=== PATIENT | male | born 1955 | race Two or more races ===

== ENCOUNTER 2025-07-17 18:34 | Inpatient (IN) | payer MEDICARE ==
[~2025-07-17] VITALS: Ht 177.8 cm; Wt 51.3 kg
[2025-07-17 19:05] LABS: PLATELET COUNT (AUTO) 400 K/uL (150-450); RED BLOOD CELL COUNT(AUTO) 3.02 MIL/uL (4.5-6.0); RED CELL DISTRIBUTION WIDTH 14.7 % (11.5-15.0); WHITE BLOOD COUNT (AUTO) 12.7 K/uL (4.3-11.0)
[2025-07-17] MEDS: IPRATROPIUM NEB FS 0.5 MG/2.5 ML AMPUL.NEB NEB ONE (19:24)
[2025-07-17] MEDS: ALBUTEROL FS 2.5 MG/3 ML VIAL.NEB CONTNEB ONE (19:24)
[2025-07-17 19:26] LABS: ABG BASE EXCESS 4.7 mmol/L (-2.0-3.0); ABG OXYGEN SATURATION 75.5 % (94.0-98.0); ABG PCO2 42.1 mmHg (35.0-48.0); ABG PH 7.456 (7.350-7.450); ABG PO2 42.1 mmHg (83.0-108.0); ABG TOTAL HEMOGLOBIN 10.2 G/dL (13.5-17.5); SET RATE, BG 20.0; SITE, ABG RIGHT RADIAL
[2025-07-17] MEDS ORDERED: ALBUTEROL FS 2.5 MG/3 ML VIAL.NEB ONE (19:26)
[2025-07-17] MEDS ORDERED: IPRATROPIUM NEB FS 0.5 MG/2.5 ML AMPUL.NEB ONE (19:26)
[2025-07-17 19:27] LABS: LACTIC ACID 2.9 mmol/L (0.4-2.0)
[2025-07-17] MEDS: IV NS 0.9% 1,000 ML BAG IV ONE (19:30)
[2025-07-17 19:34] LABS: CREATINE KINASE, TOTAL 31 U/L (39-308)
[2025-07-17 19:38] LABS: ASPARTATE AMINOTRANSFERASE 18 U/L (15-37); CALCIUM, SERUM 12.0 mg/dL (8.5-10.1); CREATININE 1.6 mg/dL (0.6-1.3); SODIUM SERUM 138 mmol/L (136-145); TOTAL PROTEIN, SERUM 5.9 g/dL (6.4-8.2); UREA NITROGEN, BLOOD 43 mg/dL (7-18)
[2025-07-17 19:40] LABS: FIBRINOGEN ACTIVITY 463.0 Mg/dL (213-485); INR 1.19 (0.91-1.10)
[2025-07-17] MEDS: LEVOFLOXACIN 750 MG /D5W 150ML PIGGYBACK IV ONE (19:47)
[2025-07-17] MEDS ORDERED: IOHEXOL-350 100 ML VIAL IV ONE (20:08)
[2025-07-17] MEDS ORDERED: IV NS 0.9% 250 ML IV ONE (20:08)
[2025-07-17] MEDS ORDERED: ENOXAPARIN SODIUM 60 MG/0.6 ML DISP.SYRIN SQ ONE (20:13)
[2025-07-17] MEDS: ENOXAPARIN SODIUM 40 MG/0.4 ML DISP.SYRIN SQ ONE (20:30)
[2025-07-17] MEDS ORDERED: AMIN30LI66 PO (20:49)
[2025-07-17] MEDS ORDERED: AMLO-213 PO (20:50)
[2025-07-17] MEDS ORDERED: ZINC10LO5 PO (20:50)
[2025-07-17] MEDS ORDERED: ASCO500C18 PO (20:50)
[2025-07-17] MEDS ORDERED: NICO1PAT44 TP (20:50)
[2025-07-17] MEDS ORDERED: MULT-594 PO (20:50)
[2025-07-17] MEDS ORDERED: DOCU100C36 PO (20:50)
[2025-07-17] MEDS ORDERED: OXYC10SY PO (20:50)
[2025-07-17 21:12] LABS: ABG BASE EXCESS 1.0 mmol/L (-2.0-3.0); ABG OXYGEN SATURATION 99.3 % (94.0-98.0); ABG PCO2 31.0 mmHg (35.0-48.0); ABG PH 7.498 (7.350-7.450); ABG PO2 252.2 mmHg (83.0-108.0); ABG TOTAL HEMOGLOBIN 12.2 G/dL (13.5-17.5); SET RATE, BG 20.0; SITE, ABG RIGHT BRACHIAL
[2025-07-17] MEDS ORDERED: PHENYLEPHRINE 50 MG in IV NS 0.9% 250 ML IV PRN (21:30)
[2025-07-17] MEDS ORDERED: BISACODYL SUPP (10 MG) 10 MG/SUPP.RECT SUPP.RECT RC PRN (21:30)
[2025-07-17] MEDS ORDERED: DOSING PER PHARMACY-VANCOMYCIN IV XX PRN (21:30)
[2025-07-17] MEDS ORDERED: ONDANSETRON HCL/PF 4 MG/2 ML VIAL IVP PRN (21:30)
[2025-07-17] MEDS ORDERED: ACETAMINOPHEN 650 MG/SUPP.RECT RC ONE (21:59)
[2025-07-17] MEDS: ACETAMINOPHEN 650 MG/SUPP.RECT RC PRN (22:04)
[2025-07-17] MEDS: IV D5/ 0.9% NACL 1,000 ML IV SCH (22:39)
[2025-07-17] MEDS: VANCOMYCIN 1 GM /D5W 250 ML PB IV ONE (22:48)
[2025-07-17] MEDS: VANCOMYCIN 1 GM in IV NS 0.9% 250 ML IV ONE (22:48)
[2025-07-17 23:00] VITALS: BP 93/68; O2SAT 100
[2025-07-17] MEDS: IV NS 0.9% 250 ML IV PRN (23:09)
[2025-07-17 23:53] LABS: ABG BASE EXCESS -0.3 mmol/L (-2.0-3.0); ABG OXYGEN SATURATION 99.4 % (94.0-98.0); ABG PCO2 29.8 mmHg (35.0-48.0); ABG PH 7.495 (7.350-7.450); ABG PO2 311.1 mmHg (83.0-108.0); ABG TOTAL HEMOGLOBIN 9.3 G/dL (13.5-17.5); SITE, ABG LEFT BRACHIAL
[2025-07-18] VITALS (26 sets, daily range): BP systolic 84–138; BP diastolic 59–76; TEMP 98–98.6; O2SAT 89–100
[2025-07-18] MEDS ORDERED: PHENYLEPHRINE 50 MG in IV NS 0.9% 250 ML IV PRN
[2025-07-18] MEDS: MORPHINE SULFATE INJ 2 MG/ML DISP.SYRIN IV PRN (01:28)
[2025-07-18] MEDS ORDERED: FUROSEMIDE 40 MG/4 ML VIAL IV ONE (02:00)
[2025-07-18] MEDS: IV NS 0.9% 1,000 ML IV SCH (02:33)
[2025-07-18 04:57] LABS: ASPARTATE AMINOTRANSFERASE 24.0 U/L (15-37); CALCIUM, SERUM 11.2 mg/dL (8.5-10.1); CREATININE 2.2 mg/dL (0.6-1.3); SODIUM SERUM 141.0 mmol/L (136-145); TOTAL PROTEIN, SERUM 5.5 g/dL (6.4-8.2); UREA NITROGEN, BLOOD 46.0 mg/dL (7-18)
[2025-07-18] MEDS: NICOTINE PATCH (14MG) 14 MG PATCH.TD24 TD SCH (08:20)
[2025-07-18] MEDS: PANTOPRAZOLE 40 MG VIAL IV SCH (08:20)
[2025-07-18] MEDS: THERAHONEY GEL 1.5 OZ TUBE TP SCH (08:21)
[2025-07-18] MEDS: IV NS 0.9% 1,000 ML IV PRN (08:59)
[2025-07-18] MEDS ORDERED: NICOTINE PATCH (14MG) 14 MG PATCH.TD24 TD SCH (09:00)
[2025-07-18 09:35] LABS: PLATELET COUNT (AUTO) 305 K/uL (150-450); RED BLOOD CELL COUNT(AUTO) 2.57 MIL/uL (4.5-6.0); RED CELL DISTRIBUTION WIDTH 14.9 % (11.5-15.0); WHITE BLOOD COUNT (AUTO) 10.9 K/uL (4.3-11.0)
[2025-07-18 19:03] LABS: ASPARTATE AMINOTRANSFERASE 25.0 U/L (15-37); CALCIUM, SERUM 11.0 mg/dL (8.5-10.1); CREATININE 2.4 mg/dL (0.6-1.3); SODIUM SERUM 143.0 mmol/L (136-145); TOTAL PROTEIN, SERUM 5.2 g/dL (6.4-8.2); UREA NITROGEN, BLOOD 52.0 mg/dL (7-18)
[2025-07-18] MEDS ORDERED: ENOXAPARIN SODIUM 60 MG/0.6 ML DISP.SYRIN SQ SCH (20:00)
[2025-07-18] MEDS: ENOXAPARIN SODIUM 60 MG/0.6 ML DISP.SYRIN SQ SCH (22:00)
[2025-07-18] MEDS: VANCOMYCIN 750 MG in IV D5W 250 ML IV SCH (23:05)
[2025-07-19] VITALS (23 sets, daily range): BP systolic 110–148; BP diastolic 50–83; TEMP 98–98.8; O2SAT 88–98
[2025-07-19 04:36] LABS: PLATELET COUNT (AUTO) 333 K/uL (150-450); RED BLOOD CELL COUNT(AUTO) 2.43 MIL/uL (4.5-6.0); RED CELL DISTRIBUTION WIDTH 15.0 % (11.5-15.0); WHITE BLOOD COUNT (AUTO) 12.2 K/uL (4.3-11.0)
[2025-07-19 04:53] LABS: CREATINE KINASE, TOTAL 59.0 U/L (39-308)
[2025-07-19 04:56] LABS: CALCIUM, SERUM 11.3 mg/dL (8.5-10.1); CREATININE 1.9 mg/dL (0.6-1.3); PHOSPHORUS 3.7 mg/dL (2.5-4.9); SODIUM SERUM 145.0 mmol/L (136-145); UREA NITROGEN, BLOOD 56.0 mg/dL (7-18)
[2025-07-19] MEDS: AMLODIPINE BESYLATE 10 MG TABLET PO SCH (08:22)
[2025-07-19] MEDS: POTASSIUM CL. PREMIX PERIPHER. 50 ML IV SCH (09:50)
[2025-07-19] MEDS: ENOXAPARIN SODIUM 30 MG/0.3 ML DISP.SYRIN SQ SCH (11:11)
[2025-07-19 11:17] LABS: IRON, SERUM 36 ug/dl (50-175)
[2025-07-19] MEDS: PANTOPRAZOLE 40 MG VIAL IV SCH (16:25)
[2025-07-19 19:33] LABS: CREATININE, URINE 101.5 MG/DL (30.0-125.0); URINE SODIUM, RANDOM 43.0 mmol/l (40-220); URINE TOTAL PROTEIN 158.4 mg/dL (0-11.9)
[2025-07-19] MEDS: LEVOFLOXACIN 750 MG /D5W 150ML 750 MG in PREMIX 1 EA IV SCH (19:33)
[2025-07-19 19:41] LABS: APPEARANCE,URINE SLIGHTLY CLOUDY (CLEAR); BLOOD, URINE 1+ Ery/uL (NEGATIVE); LEUKOCYTE ESTERASE ,URINE TRACE (NEGATIVE); NITRITE, URINE NEGATIVE (NEGATIVE); UGLUCOSE NEGATIVE (NEGATIVE)
[2025-07-19 19:55] LABS: CALCIUM OXALATE CRYSTALS,UR Few /HPF (None Seen)
[2025-07-19 19:57] LABS: ADD URINE CULTURE YES; SQUAMOUS EPITHELIAL CELL,UR Rare /HPF (None Seen)
[2025-07-19] MEDS ORDERED: LEVOFLOXACIN 500 MG /D5W 100ML 500 MG in PREMIX 1 EA IV SCH (20:00)
[2025-07-19] MEDS: ALBUTEROL FS 2.5 MG/0.5 ML VIAL.NEB NEB PRN (20:06)
[2025-07-19 20:51] LABS: EOSINOPHIL,URINE None Seen
[2025-07-19 21:49] LABS: ABG BASE EXCESS 2.0 mmol/L (-2.0-3.0); ABG OXYGEN SATURATION 88.8 % (94.0-98.0); ABG PCO2 30.2 mmHg (35.0-48.0); ABG PH 7.529 (7.350-7.450); ABG PO2 56.1 mmHg (83.0-108.0); ABG TOTAL HEMOGLOBIN 7.9 G/dL (13.5-17.5); FLOW, BLOOD GAS 10.00 L/min (0.00-30.00); FRACTIONATED INSPIRED OXYGEN 60.0 %; SITE, ABG RIGHT RADIAL
[2025-07-20] VITALS: BP 129/66; TEMP 99.1; O2SAT 96
[2025-07-20 04:00] VITALS: BP 121/64; TEMP 97.9; O2SAT 98
[2025-07-20 08:00] VITALS: BP 132/66; TEMP 98.2; O2SAT 98
[2025-07-20 12:00] VITALS: BP 127/62; TEMP 98.2; O2SAT 98
[2025-07-20 12:27] LABS: PLATELET COUNT (AUTO) 318 K/uL (150-450); RED BLOOD CELL COUNT(AUTO) 2.60 MIL/uL (4.5-6.0); RED CELL DISTRIBUTION WIDTH 15.0 % (11.5-15.0); WHITE BLOOD COUNT (AUTO) 12.1 K/uL (4.3-11.0)
[2025-07-20 12:35] LABS: ASPARTATE AMINOTRANSFERASE 26.0 U/L (15-37); CALCIUM, SERUM 11.9 mg/dL (8.5-10.1); CREATININE 1.6 mg/dL (0.6-1.3); SODIUM SERUM 149.0 mmol/L (136-145); TOTAL PROTEIN, SERUM 5.2 g/dL (6.4-8.2); UREA NITROGEN, BLOOD 45.0 mg/dL (7-18)
[2025-07-20] MEDS: IV D5/0.45 NACL 1,000 ML IV SCH (13:01)
[2025-07-20] MEDS: POTASSIUM CL. PREMIX PERIPHER. 50 ML IV SCH (13:05)
[2025-07-20 16:00] VITALS: BP 129/69; TEMP 97.8; O2SAT 98
[2025-07-20 20:00] VITALS: BP 134/76; TEMP 100.4; O2SAT 96
[2025-07-21] VITALS (10 sets, daily range): BP systolic 106–123; BP diastolic 56–72; TEMP 97.3–99.5; O2SAT 94–97
[2025-07-21] MEDS: ACETYLCYSTEINE 10% SOLN 400 MG/4 ML VIAL NEB SCH (09:40)
[2025-07-21 09:45] LABS: ASPARTATE AMINOTRANSFERASE 25.0 U/L (15-37); CALCIUM, SERUM 12.2 mg/dL (8.5-10.1); CREATININE 1.4 mg/dL (0.6-1.3); SODIUM SERUM 149.0 mmol/L (136-145); TOTAL PROTEIN, SERUM 5.4 g/dL (6.4-8.2); UREA NITROGEN, BLOOD 41.0 mg/dL (7-18)
[2025-07-21] MEDS: POTASSIUM CL. PREMIX PERIPHER. 50 ML IV SCH (10:26)
[2025-07-21] MEDS: IV D5/0.45 NACL 1,000 ML IV PRN (15:56)
[2025-07-21 16:27] LABS: PLATELET COUNT (AUTO) 299 K/uL (150-450); RED BLOOD CELL COUNT(AUTO) 3.07 MIL/uL (4.5-6.0); RED CELL DISTRIBUTION WIDTH 15.5 % (11.5-15.0); WHITE BLOOD COUNT (AUTO) 16.7 K/uL (4.3-11.0)
[2025-07-21 17:01] LABS: LYMPHOCYTES % (MANUAL) 3 % (16-48); MONOCYTES % (MANUAL) 2 % (0-11.0); NEUTROPHILS % (MANUAL) 95 (42-76)
[2025-07-21 17:02] LABS: PLATELET ESTIMATE ADEQUATE
[2025-07-22] VITALS (15 sets, daily range): BP systolic 109–133; BP diastolic 57–92; TEMP 97.3–98.7; O2SAT 88–99
[2025-07-22 01:07] LABS: PTH, INTACT 10 pg/mL (15-65)
[2025-07-22 06:55] LABS: ASPARTATE AMINOTRANSFERASE 15.0 U/L (15-37); CALCIUM, SERUM 12.9 mg/dL (8.5-10.1); CREATININE 1.4 mg/dL (0.6-1.3); TOTAL PROTEIN, SERUM 4.7 g/dL (6.4-8.2); UREA NITROGEN, BLOOD 38.0 mg/dL (7-18)
[2025-07-22 07:07] LABS: PLATELET COUNT (AUTO) 255 K/uL (150-450); RED BLOOD CELL COUNT(AUTO) 2.63 MIL/uL (4.5-6.0); RED CELL DISTRIBUTION WIDTH 15.2 % (11.5-15.0); WHITE BLOOD COUNT (AUTO) 12.4 K/uL (4.3-11.0)
[2025-07-22 07:15] LABS: SODIUM SERUM 148.0 mmol/L (136-145)
[2025-07-22] MEDS: POTASSIUM CL. PREMIX PERIPHER. 50 ML IV SCH (08:53)
[2025-07-22] MEDS: NACL IV SCH (09:12)
[2025-07-22] MEDS: POTASSIUM CL IV SCH (09:12)
[2025-07-22] MEDS: D5 IV SCH (09:12)
[2025-07-22] MEDS: PERIPHER IV SCH (09:12)
[2025-07-22] MEDS: PAMIDRONATE 90 MG in IV NS 0.9% 500 ML IV ONE (09:51)
[2025-07-22 10:39] LABS: CREATININE 1.4 mg/dL (0.6-1.3); SODIUM SERUM 149.0 mmol/L (136-145); UREA NITROGEN, BLOOD 38.0 mg/dL (7-18)
[2025-07-22 11:03] LABS: FREE PSA 0.2 ng/mL (0.00-45); PROSTATE SPECIFIC ANTIGEN SCR 4.3 ng/mL (0.00-4.00)
[2025-07-22 11:03] LABS: CALCIUM, SERUM 13.1 mg/dL (8.5-10.1)
[2025-07-22 12:56] LABS: LYMPHOCYTES % (MANUAL) 2 % (16-48); MONOCYTES % (MANUAL) 4 % (0-11.0); NEUTROPHILS % (MANUAL) 94 (42-76); PLATELET ESTIMATE ADEQUATE
[2025-07-22] MEDS ORDERED: IOHEXOL-350 100 ML VIAL IV ONE (14:41)
[2025-07-22] MEDS ORDERED: IV NS 0.9% 250 ML IV ONE (14:41)
[2025-07-22 16:58] LABS: CREATININE 1.4 mg/dL (0.6-1.3); SODIUM SERUM 149.0 mmol/L (136-145); UREA NITROGEN, BLOOD 35.0 mg/dL (7-18)
[2025-07-22 17:09] LABS: CALCIUM, SERUM 13.1 mg/dL (8.5-10.1)
[2025-07-22] MEDS: JEVITY 1.2 CAL 1,000 ML BOTTLE GT SCH (18:45)
[2025-07-22] MEDS ORDERED: PERIPHER IV SCH (23:00)
[2025-07-22] MEDS ORDERED: POTASSIUM CL IV SCH (23:00)
[2025-07-22] MEDS ORDERED: NACL IV SCH (23:00)
[2025-07-22] MEDS ORDERED: D5 IV SCH (23:00)
[2025-07-22] MEDS ORDERED: IV PREMIX D5 1/2NS + KCL 1,000 ML IV ONE (23:32)
[2025-07-23] VITALS (12 sets, daily range): BP systolic 115–144; BP diastolic 65–87; TEMP 97.5–98.8; O2SAT 94–98
[2025-07-23] MEDS: IV PREMIX D5 1/2NS + KCL 1,000 ML IV SCH (00:05)
[2025-07-23 03:07] LABS: VIT D, 25-HYDROXY 17.9 ng/mL (30.0-100.0)
[2025-07-23 05:08] LABS: CARCINOEMBRYONIC ANTIGEN (CEA) 48.5 ng/mL (0.0-4.7); FOLIC ACID 13.3 ng/mL (>3.0)
[2025-07-23 07:56] LABS: PLATELET COUNT (AUTO) 229 K/uL (150-450); RED BLOOD CELL COUNT(AUTO) 2.59 MIL/uL (4.5-6.0); RED CELL DISTRIBUTION WIDTH 16.2 % (11.5-15.0); WHITE BLOOD COUNT (AUTO) 17.3 K/uL (4.3-11.0)
[2025-07-23 08:28] LABS: ASPARTATE AMINOTRANSFERASE 23.0 U/L (15-37); CREATININE 1.4 mg/dL (0.6-1.3); SODIUM SERUM 148.0 mmol/L (136-145); TOTAL PROTEIN, SERUM 4.8 g/dL (6.4-8.2); UREA NITROGEN, BLOOD 33.0 mg/dL (7-18)
[2025-07-23 08:48] LABS: CALCIUM, SERUM 14.0 mg/dL (8.5-10.1)
[2025-07-23 09:49] LABS: BAND % (MANUAL) 1 % (0.0-5.0); LYMPHOCYTES % (MANUAL) 3 % (16-48); MONOCYTES % (MANUAL) 2 % (0-11.0); NEUTROPHILS % (MANUAL) 94 (42-76)
[2025-07-23 09:50] LABS: PLATELET ESTIMATE ADEQUATE
[2025-07-23] MEDS: IV 1/2NS 1000 ML 1,000 ML IV SCH (10:27)
[2025-07-23 10:37] LABS: CREATININE 1.5 mg/dL (0.6-1.3); SODIUM SERUM 149.0 mmol/L (136-145); UREA NITROGEN, BLOOD 34.0 mg/dL (7-18)
[2025-07-23 10:40] LABS: CALCIUM, SERUM 14.1 mg/dL (8.5-10.1)
[2025-07-23] MEDS: CALCITONIN,SALMON,SYNTHETIC 3.7 ML SPRAY.PUMP NS ONE ×2 (18:10→18:11)
[2025-07-23 21:21] LABS: ABG BASE EXCESS 4.1 mmol/L (-2.0-3.0); ABG OXYGEN SATURATION 94.0 % (94.0-98.0); ABG PCO2 37.6 mmHg (35.0-48.0); ABG PH 7.485 (7.350-7.450); ABG PO2 70.8 mmHg (83.0-108.0); ABG TOTAL HEMOGLOBIN 10.6 G/dL (13.5-17.5); FLOW, BLOOD GAS 8.00 L/min (0.00-30.00); FRACTIONATED INSPIRED OXYGEN 52.0 %; SITE, ABG LEFT BRACHIAL
[2025-07-24] VITALS: BP 135/70; TEMP 97.7; O2SAT 96
[2025-07-24 04:00] VITALS: BP 141/88; TEMP 98.3; O2SAT 96
[2025-07-24 07:27] VITALS: O2SAT 96
[2025-07-24 07:36] LABS: PLATELET COUNT (AUTO) 249 K/uL (150-450); RED BLOOD CELL COUNT(AUTO) 2.81 MIL/uL (4.5-6.0); RED CELL DISTRIBUTION WIDTH 15.5 % (11.5-15.0); WHITE BLOOD COUNT (AUTO) 22.7 K/uL (4.3-11.0)
[2025-07-24 07:37] VITALS: O2SAT 96
[2025-07-24 07:51] LABS: ASPARTATE AMINOTRANSFERASE 25.0 U/L (15-37); CALCIUM, SERUM 12.9 mg/dL (8.5-10.1); CREATININE 1.3 mg/dL (0.6-1.3); SODIUM SERUM 148.0 mmol/L (136-145); TOTAL PROTEIN, SERUM 5.1 g/dL (6.4-8.2); UREA NITROGEN, BLOOD 34.0 mg/dL (7-18)
[2025-07-24 07:57] LABS: PHOSPHORUS 3.1 mg/dL (2.5-4.9)
[2025-07-24 08:00] VITALS: BP 114/59; TEMP 98.1; O2SAT 92
[2025-07-24 08:18] LABS: LYMPHOCYTES % (MANUAL) 2 % (16-48); MONOCYTES % (MANUAL) 5 % (0-11.0); NEUTROPHILS % (MANUAL) 93 (42-76)
[2025-07-24 08:19] LABS: PLATELET ESTIMATE ADEQUATE
[2025-07-24 09:07] VITALS: BP 114/59
[2025-07-24 09:50] LABS: ABG BASE EXCESS 0.8 mmol/L (-2.0-3.0); ABG OXYGEN SATURATION 70.6 % (94.0-98.0); ABG PCO2 47.0 mmHg (35.0-48.0); ABG PH 7.366 (7.350-7.450); ABG PO2 40.6 mmHg (83.0-108.0); ABG TOTAL HEMOGLOBIN 8.0 G/dL (13.5-17.5); FLOW, BLOOD GAS 10.00 L/min (0.00-30.00); FRACTIONATED INSPIRED OXYGEN 60.0 %; SITE, ABG RIGHT RADIAL
[2025-07-24] MEDS ORDERED: EPINEPHRINE (1:10,000) SYRINGE 1 MG/10 ML DISP.SYRIN IVP ONE (09:53)
[2025-07-24] MEDS ORDERED: CALCIUM CHLORIDE 1,000 MG/10 ML DISP.SYRIN IV ONE (09:53)
[2025-07-24] MEDS ORDERED: SODIUM BICARBONATE SYR 50 MEQ/50 ML DISP.SYRIN IV ONE (09:53)
[2025-07-24] MEDS ORDERED: CALCITONIN,SALMON INJ 400 UNITS/2 ML VIAL SQ SCH (10:00)
[2025-07-24] MEDS ORDERED: MAGNESIUM OXIDE 400 MG TABLET GT ONE (10:30)
== END 2025-07-24 13:08 | DRG 871 ==
LOC: ER 18:39 → ICU 20:46 → TELE 07-19 17:28 → TELE1 07-19 21:26 → TELE-TD 07-19 21:28 → TELE1 07-20 17:04
PROVIDERS: ADMIT Registered Nurse Psychiatric/Mental Health; ATTEND Nurse Practitioner Acute Care
PROC: 5A09357 Assistance with Respiratory Ventilation, Less than 24 Consecutive Hours, Continuous Positive Airway Pressure (ICD-10-PCS; principal; 2025-07-17)
PROC: 5A12012 Performance of Cardiac Output, Single, Manual (ICD-10-PCS; 2025-07-24)
PROC: 0BH17EZ Insertion of Endotracheal Airway into Trachea, Via Natural or Artificial Opening (ICD-10-PCS; 2025-07-24)
DX: A41.9 Sepsis, unspecified organism (principal); J15.9 Unspecified bacterial pneumonia; J96.01 Acute respiratory failure with hypoxia; N17.0 Acute kidney failure with tubular necrosis; R64 Cachexia; J98.11 Atelectasis; C79.9 Secondary malignant neoplasm of unspecified site; D62 Acute posthemorrhagic anemia; E87.0 Hyperosmolality and hypernatremia; R65.20 Severe sepsis without septic shock; E86.0 Dehydration; Z20.822 Contact with and (suspected) exposure to COVID-19; Z88.0 Allergy status to penicillin; Z98.1 Arthrodesis status; Z79.899 Other long term (current) drug therapy; E83.52 Hypercalcemia; D64.9 Anemia, unspecified; R79.1 Abnormal coagulation profile; L89.156 Pressure-induced deep tissue damage of sacral region; Y95 Nosocomial condition; T17.990A Other foreign object in respiratory tract, part unspecified in causing asphyxiation, initial encounter; W44.F9XA Other object of natural or organic material, entering into or through a natural orifice, initial encounter; Y99.9 Unspecified external cause status; L89.226 Pressure-induced deep tissue damage of left hip; I12.9 Hypertensive chronic kidney disease with stage 1 through stage 4 chronic kidney disease, or unspecified chronic kidney disease; N18.9 Chronic kidney disease, unspecified; H91.90 Unspecified hearing loss, unspecified ear; Z87.891 Personal history of nicotine dependence; Z85.830 Personal history of malignant neoplasm of bone; Z85.51 Personal history of malignant neoplasm of bladder; Z98.890 Other specified postprocedural states; L89.626 Pressure-induced deep tissue damage of left heel; L89.616 Pressure-induced deep tissue damage of right heel; R62.7 Adult failure to thrive; Z85.118 Personal history of other malignant neoplasm of bronchus and lung; E87.6 Hypokalemia; D75.839 Thrombocytosis, unspecified; I46.9 Cardiac arrest, cause unspecified; R91.8 Other nonspecific abnormal finding of lung field; R13.10 Dysphagia, unspecified
CPT/HCPCS: 31720; 36415; 36600; 71045-TC; 71250-TC; 76604-TC; 76770-TC; 80048-TC; 80053-TC; 80076-TC; 80202-TC; 81001; 82306; 82378; 82550-TC; 82570-TC; 82607-TC; 82728-TC; 82803-TC; 82962-TC; 83540-TC; 83605-TC; 83615-TC; 83735-TC; 83970; 84100-TC; 84153-TC; 84154-TC; 84155; 84165; 84300-TC; 84443-TC; 84484-TC; 85025-TC; 85027-TC; 85045-TC; 85378-TC; 85385-TC; 85730-TC; 86140-TC; 87040-TC; 87081-TC; 87086-TC; 92526; 92611; 93970-TC; 94760-TC; 94799-TC; 99082-TC; A4216; A4223; A6213; G0378; J0169; J0630; J1650; J1956; J2270; J2430; J2470; J2919; J3373; J3374; J3480; J3490; J7030; J7040; J7042; J7050; J7060; Q9967